=== PATIENT | female | born 1980 | race African-American/Black ===

== ENCOUNTER 2016-08-26 11:41 | Emergency (ER) | payer OTHER ==
[~2016-08-26 11:41] MED LIST: ANTIFUNGAL15 G1 TP; BACTRIM DS TAB1 EACH PO; CLEOCIN HCL300 MG PO; FLEXERIL PO; IBUPROFEN 600600 M1 PO; KENALOG60 GM TP; NORCO 5-325 TA1 EACH PO; TORADOL 10 MG T10 MG PO; VITAMINS
[2016-08-26 11:53] VITALS: BP 143/100
== END 2016-08-26 12:47 | disposition left against medical advice (07) ==
LOC: ER 11:41
DX: Z53.21 Procedure and treatment not carried out due to patient leaving prior to being seen by health care provider (principal)

== ENCOUNTER 2018-01-19 23:02 | Emergency (ER) | payer OTHER ==
[~2018-01-19] VITALS: Ht 167.6 cm; Wt 96.6 kg
[2018-01-19] MEDS ORDERED: PRENATAL PO (23:09)
[2018-01-19] MEDS ORDERED: TYLENOL325 MG PO (23:09)
[2018-01-19] MEDS ORDERED: MONISTAT 745 GM (23:09)
[2018-01-20 02:20] VITALS: BP 114/78
== END 2018-01-20 02:15 | disposition home or self-care (01) ==
LOC: ER 23:02
DX: N76.0 Acute vaginitis (principal); I10 Essential (primary) hypertension; Z88.0 Allergy status to penicillin

== ENCOUNTER 2018-05-25 09:12 | Emergency (ER) | payer OTHER ==
[~2018-05-25] VITALS: Ht 167.6 cm; Wt 97.5 kg
[~2018-05-25 09:12] MED LIST changes: +MONISTAT 745 GM; +PRENATAL PO; +TYLENOL325 MG PO
[2018-05-25 09:56] LABS: URINE BILIRUBIN NEGATIVE (Negative); URINE BLOOD NEGATIVE (Negative); URINE CLARITY CLEAR; URINE COLOR YELLOW; URINE GLUCOSE-RANDOM* NEGATIVE (Negative); URINE KETONES NEGATIVE (Negative); URINE LEUKOCYTES-REFLEX NEGATIVE (Negative); URINE NITRITE-REFLEX NEGATIVE (Negative); URINE PROTEIN (DIPSTICK) NEGATIVE (Negative); URINE SPECIFIC GRAVITY 1.025 (1.005-1.035); URINE UROBILINOGEN 0.2 E.U./dl (0.2-1.0)
[2018-05-25 10:18] VITALS: BP 145/116
[2018-05-25] MEDS ORDERED: MOBIC7.5 MG PO (10:28)
[2018-05-25] MEDS ORDERED: NORFLEX100 MG PO (10:28)
== END 2018-05-25 10:56 | disposition home or self-care (01) ==
LOC: ER 09:12
PROVIDERS: Emergency Medicine
DX: S29.012A Strain of muscle and tendon of back wall of thorax, initial encounter (principal); I10 Essential (primary) hypertension; Z88.0 Allergy status to penicillin; X50.9XXA Other and unspecified overexertion or strenuous movements or postures, initial encounter; Y93.89 Activity, other specified; Y92.89 Other specified places as the place of occurrence of the external cause; Y99.8 Other external cause status

== ENCOUNTER 2018-10-27 14:41 | Emergency (ER) | payer OTHER ==
[~2018-10-27] VITALS: Ht 167.6 cm; Wt 103.0 kg
[~2018-10-27 14:41] MED LIST changes: +MOBIC7.5 MG PO; +NORFLEX100 MG PO
[2018-10-27 15:00] LABS: URINE BILIRUBIN NEGATIVE (Negative); URINE BLOOD 3+ (Negative); URINE CLARITY CLEAR; URINE COLOR YELLOW; URINE GLUCOSE-RANDOM* NEGATIVE (Negative); URINE KETONES NEGATIVE (Negative); URINE LEUKOCYTES TRACE (Negative); URINE NITRITE NEGATIVE (Negative); URINE PROTEIN (DIPSTICK) TRACE (Negative); URINE SPECIFIC GRAVITY 1.025 (1.005-1.035); URINE UROBILINOGEN 0.2 E.U./dl (0.2-1.0)
[2018-10-27 15:09] LABS: CASTS None Seen /LPF (None Seen); SQUAMOUS 0-3 Few /LPF (0-3)
[2018-10-27 15:10] LABS: BACTERIA None Seen /HPF (None Seen); CRYSTALS None Seen /LPF (None Seen); URINE RBC >20 Many /HPF (0-2); URINE WBC 0-5 Rare /HPF (0-5)
[2018-10-27] MEDS ORDERED: NORVASC5 MG PO (15:40)
[2018-10-27 16:35] LABS: ABSOLUTE NEUTROPHILS 4.2 thou/uL (1.4-8.2); BASOPHILS 1.3 % (0.0-2.0); EOSINOPHILS 0.9 % (0.0-3.0); HEMATOCRIT 37.8 % (37.0-47.0); HEMOGLOBIN 11.8 gm/dL (12.0-15.0); MCH 24.7 pg (26.0-34.0); MCHC 31.2 g/dL (28.0-37.0); MCV 79.1 fL (80.0-100.0); MONOCYTES 10.1 % (1.0-8.0); PLATELET COUNT 397 thou/uL (150-400); POLYS 52.7 % (36.0-66.0); RBC 4.77 mil/uL (4.20-5.00); RDW 15.1 % (10.5-14.5); WBC 7.9 thou/uL (4.0-11.0)
[2018-10-27 16:44] LABS: CALCIUM 8.9 mg/dL (8.5-10.1); CREATININE 0.7 mg/dL (0.6-1.0)
[2018-10-27 18:20] VITALS: BP 166/109
== END 2018-10-27 18:20 | disposition home or self-care (01) ==
LOC: ER 14:41
PROVIDERS: Emergency Medicine; Emergency Medicine Emergency Medical Services
DX: O20.0 Threatened abortion (principal); I10 Essential (primary) hypertension; Z3A.01 Less than 8 weeks gestation of pregnancy; Z88.0 Allergy status to penicillin

== ENCOUNTER 2018-11-02 18:55 | Emergency (ER) | payer OTHER ==
[~2018-11-02] VITALS: Ht 167.6 cm; Wt 104.3 kg
[~2018-11-02 18:55] MED LIST changes: +NORVASC5 MG PO
[2018-11-02 20:28] LABS: HEMATOCRIT 34.8 % (37.0-47.0); HEMOGLOBIN 10.8 gm/dL (12.0-15.0); MCH 24.3 pg (26.0-34.0); MCHC 30.9 g/dL (28.0-37.0); MCV 78.5 fL (80.0-100.0); RBC 4.43 mil/uL (4.20-5.00); RDW 14.9 % (10.5-14.5); WBC 8.1 thou/uL (4.0-11.0)
[2018-11-02 21:35] VITALS: BP 155/98
== END 2018-11-02 21:35 | disposition home or self-care (01) ==
LOC: ER 18:55
PROVIDERS: Emergency Medicine
DX: O03.9 Complete or unspecified spontaneous abortion without complication (principal); I10 Essential (primary) hypertension; Z88.0 Allergy status to penicillin; Z3A.01 Less than 8 weeks gestation of pregnancy

== ENCOUNTER 2019-01-11 17:15 | Emergency (ER) | payer OTHER ==
[~2019-01-11] VITALS: Ht 167.6 cm; Wt 103.0 kg
[2019-01-11 18:39] VITALS: BP 163/101
[2019-01-11] MEDS ORDERED: TRIAMCINOLONE A80 GM TOP (18:53)
[2019-01-11] MEDS ORDERED: MUPIROCIN15 GM TOP (18:53)
== END 2019-01-11 19:06 | disposition home or self-care (01) ==
LOC: ER 17:15
DX: L30.1 Dyshidrosis [pompholyx] (principal); I10 Essential (primary) hypertension; Z88.0 Allergy status to penicillin

== ENCOUNTER 2019-08-09 01:32 | Emergency (ER) | payer OTHER ==
[~2019-08-09] VITALS: Ht 167.6 cm; Wt 107.5 kg
[~2019-08-09 01:32] MED LIST changes: +MUPIROCIN15 GM TOP; +TRIAMCINOLONE A80 GM TOP
[2019-08-09 01:40] VITALS: BP 153/108
[2019-08-09] MEDS ORDERED: TRIAMCINOLONE A80 GM TOP (02:15)
== END 2019-08-09 02:34 | disposition home or self-care (01) ==
LOC: ER 01:32
DX: L25.9 Unspecified contact dermatitis, unspecified cause (principal); I10 Essential (primary) hypertension; Z79.899 Other long term (current) drug therapy; Z88.0 Allergy status to penicillin

== ENCOUNTER 2019-12-30 03:53 | Emergency (ER) | payer OTHER ==
[~2019-12-30] VITALS: Ht 167.6 cm; Wt 104.3 kg
--- NOTE | ~2019-12-30 | EMS ---
[place] [address] EMS Patient Care Report Name: AMBROSIO HECTOR Room #: REG Ngoc#: [id number] Admission: 12/30/19 Attend Phys: Discharge: Date of : 84 Report #: [id number] THIS REPORT FOR: //name// Report Transmitted: 12/30/2019 05:18 EMS Care Summary [place], [place]/[facility] Incident [id number] @ 12/30/2019 03:20 Incident Location [id number] [place] [address] Patient AMBROSIO HECTOR Female, 39 Years 1980 Patient Address [id number] [place] [address] Patient History Hypertension (HTN),Anxiety, Patient Allergies Penicillin allergy, Patient Medications Amlodipine, Hydroxyzine, Chief Complaint DIZZY WITH HEADACHE Disposition Transported No Lights/[place] Dispatch Reason Sick Person Transported To [facility] Narrative UPON ARRIVAL PT R LATERAL ON BATHROOM FLOOR. PT STATES SHE WOKE UP WITH A HEADACHE AND NAUSEA AND CAME TO THE BATHROOM TO THROW UP WHICH SHE DID NOT. SHE THEN BECAME DIZZY ALSO AND LAYED ON THE FLOOR. PT ASSISTED TO STAIRCHAIR AND TAKEN OUT TO COT. PT TRANSPORTED TO [facility] [place] [address] EMS Patient Care Report Name: AMBROSIO HECTOR Room #: REG ER Ngoc#: [id number] Admission: 12/30/19 Attend Phys: Discharge: Date of : 84 Report #: [id number] Initial Vitals @03:46P: 61,CO: 8,SpO2: 100, @03:35P: 65,R: 16,BP: 149/89,Pain: 10/10,GCS: 14,Glucose: 129,SpO2: 99,Revised Trauma: 12, @03:46P: 55,R: 16,BP: 136/79,GCS: 14,SpO2: 99,Revised Trauma: 12, Assessments @03:27MENTAL:Person Oriented,Time Oriented,Event Oriented,Place Oriented,SKIN:HEENT:Head/Face: No Abnormalities,LUNG SOUNDS:General: Nausea,ABDOMEN:General: Nausea,PELVIS//GI:EXTREMITIES:Left Arm: No Abnormalities,Right Arm: No Abnormalities,Left Leg: No Abnormalities,Right Leg: No Abnormalities,PULSE:Radial: 2+ Normal,NEURO:No Abnormalities, Impression Dizziness Procedures @03:27ALS AssessmentResponse: UnchangedSucceeded@03:383-Lead ECGResponse: UnchangedSucceeded Timeline 03:18,Call Received 03:18,Dispatch Notified 03:20,Dispatched 03:22,En Route 03:25,On Scene 03:26,At Patient 03:27,ALS Assessment,Response: UnchangedSucceeded, 03:35,BP: 149/89 M,PULSE: 65,RR: 16 R,SPO2: 99 Ox,ETCO2: ,B,PAIN: 10,GCS: 14, 03:38,3-Lead ECG,Response: UnchangedSucceeded, 03:39,Depart Scene 03:46,BP: / M,PULSE: 61,RR: R,SPO2: 100 Ox,ETCO2: ,BG: ,PAIN: ,GCS: , 03:46,BP: 136/79 M,PULSE: 55,RR: 16 R,SPO2: 99 Ox,ETCO2: ,BG: ,PAIN: ,GCS: 14, 03:49,At Destination 04:00,Call Closed Disclaimer v1.1 Copyright 2020 [employer] This EMS Care Summary contains data elements from the applicable legal record (which may be displayed differently). It is designed to provide pertinent information for the following purposes: continuity of care, clinical quality, and state data reporting. The complete legal record is available to ED staff and administrators of the receiving hospital in ES's Patient Tracker. All data is provided "as is."
--- NOTE | ~2019-12-30 | EMS ---
[address] [address] EMS Patient Care Report Name: AMBROSIO HECTOR Room #: DEP Ngoc#: [id number] Admission: 12/30/19 Attend Phys: Discharge: 12/30/19 Date of : 84 Report #: [id number] THIS REPORT FOR: //name// Report Transmitted: 12/30/2019 06:18 EMS Care Summary [place], [place]/[facility] Incident [id number] @ 12/30/2019 03:20 Incident Location [id number] [place] [address] Patient AMBROSIO HECTOR Female, 39 Years 1980 Patient Address [address] [place] [address] Patient History Hypertension (HTN),Anxiety, Patient Allergies Penicillin allergy, Patient Medications Amlodipine, Hydroxyzine, Chief Complaint DIZZY WITH HEADACHE Disposition Transported No Lights/[place] Dispatch Reason Sick Person Transported To [facility] Narrative UPON ARRIVAL PT R LATERAL ON BATHROOM FLOOR. PT STATES SHE WOKE UP WITH A HEADACHE AND NAUSEA AND CAME TO THE BATHROOM TO THROW UP WHICH SHE DID NOT. SHE THEN BECAME DIZZY ALSO AND LAYED ON THE FLOOR. PT ASSISTED TO STAIRCHAIR AND TAKEN OUT TO COT. PT TRANSPORTED TO [facility] [place] [place] [address] EMS Patient Care Report Name: AMBROSIO HECTOR Room #: DEP ER [facility]#: [id number] Admission: 12/30/19 Attend Phys: Discharge: 12/30/19 Date of : 84 Report #: [id number] Initial Vitals @03:46P: 61,CO: 8,SpO2: 100, @03:35P: 65,R: 16,BP: 149/89,Pain: 10/10,GCS: 14,Glucose: 129,SpO2: 99,Revised Trauma: 12, @03:46P: 55,R: 16,BP: 136/79,GCS: 14,SpO2: 99,Revised Trauma: 12, Assessments @03:27MENTAL:Person Oriented,Time Oriented,Event Oriented,Place Oriented,SKIN:HEENT:Head/Face: No Abnormalities,LUNG SOUNDS:General: Nausea,ABDOMEN:General: Nausea,PELVIS//GI:EXTREMITIES:Left Arm: No Abnormalities,Right Arm: No Abnormalities,Left Leg: No Abnormalities,Right Leg: No Abnormalities,PULSE:Radial: 2+ Normal,NEURO:No Abnormalities, Impression Dizziness Procedures @03:27ALS AssessmentResponse: UnchangedSucceeded@03:383-Lead ECGResponse: UnchangedSucceeded Timeline 03:18,Call Received 03:18,Dispatch Notified 03:20,Dispatched 03:22,En Route 03:25,On Scene 03:26,At Patient 03:27,ALS Assessment,Response: UnchangedSucceeded, 03:35,BP: 149/89 M,PULSE: 65,RR: 16 R,SPO2: 99 Ox,ETCO2: ,B,PAIN: 10,GCS: 14, 03:38,3-Lead ECG,Response: UnchangedSucceeded, 03:39,Depart Scene 03:46,BP: / M,PULSE: 61,RR: R,SPO2: 100 Ox,ETCO2: ,BG: ,PAIN: ,GCS: , 03:46,BP: 136/79 M,PULSE: 55,RR: 16 R,SPO2: 99 Ox,ETCO2: ,BG: ,PAIN: ,GCS: 14, 03:49,At Destination 04:00,Call Closed Disclaimer v1.1 Copyright 2020 [employer] This EMS Care Summary contains data elements from the applicable legal record (which may be displayed differently). It is designed to provide pertinent information for the following purposes: continuity of care, clinical quality, and state data reporting. The complete legal record is available to ED staff and administrators of the receiving hospital in ES's Patient Tracker. All data is provided "as is."
[2019-12-30] MEDS ORDERED: CELEXA10 MG PO (04:04)
[2019-12-30] MEDS ORDERED: hydroxyzine PO (05:01)
[2019-12-30 05:08] LABS: ABSOLUTE NEUTROPHILS 5.4 thou/uL (1.4-8.2); BASOPHILS 1.2 % (0.0-2.0); EOSINOPHILS 0.8 % (0.0-3.0); HEMATOCRIT 31.7 % (37.0-47.0); LYMPHOCYTES 27.8 % (24.0-44.0); MCH 22.7 pg (26.0-34.0); MCHC 31.4 g/dL (28.0-37.0); MCV 72.1 fL (80.0-100.0); MONOCYTES 10.2 % (1.0-8.0); PLATELET COUNT 434 thou/uL (150-400); RBC 4.39 mil/uL (4.20-5.00); RDW 15.9 % (10.5-14.5); WBC 9.1 thou/uL (4.0-11.0)
[2019-12-30 05:11] LABS: ANION GAP 11 mmol/L (7-16); BUN 16 mg/dL (7-18); CALCIUM 9.3 mg/dL (8.5-10.1); CHLORIDE 102 mmol/L (98-107); CO2 25 mmol/L (21-32); GLUCOSE 94 mg/dL (74-106); POTASSIUM 3.9 mmol/L (3.5-5.1); SODIUM 138 mmol/L (136-145)
[2019-12-30 05:25] LABS: ALBUMIN 3.3 g/dL (3.4-5.0); DIRECT BILIRUBIN < 0.1 mg/dL (<0.1-0.2); SGOT 16 U/L (15-37); SGPT 12 U/L (30-65); TOTAL BILIRUBIN 0.3 mg/dL (0.2-1.0)
[2019-12-30 05:44] LABS: APTT 24.6 Seconds (24.5-32.8); PROTIME 10.4 Seconds (9.3-11.4)
[2019-12-30 06:27] VITALS: BP 111/70
== END 2019-12-30 06:51 | disposition home or self-care (01) ==
LOC: ER 03:53
PROVIDERS: Emergency Medicine
DX: R51.9 Headache, unspecified (principal); R42 Dizziness and giddiness; I10 Essential (primary) hypertension; Z79.899 Other long term (current) drug therapy; Z88.0 Allergy status to penicillin

== ENCOUNTER 2020-02-18 20:54 | Emergency (ER) | payer OTHER ==
[~2020-02-18] VITALS: Ht 167.6 cm; Wt 99.8 kg
[~2020-02-18 20:54] MED LIST changes: +CELEXA10 MG PO; +hydroxyzine PO
[2020-02-18 21:09] LABS: URINE BILIRUBIN NEGATIVE (Negative); URINE BLOOD 3+ (Negative); URINE CLARITY CLEAR; URINE COLOR YELLOW; URINE GLUCOSE-RANDOM* NEGATIVE (Negative); URINE KETONES NEGATIVE (Negative); URINE LEUKOCYTES-REFLEX TRACE (Negative); URINE NITRITE-REFLEX NEGATIVE (Negative); URINE PROTEIN (DIPSTICK) NEGATIVE (Negative); URINE SPECIFIC GRAVITY >= 1.030 (1.005-1.035); URINE UROBILINOGEN 0.2 E.U./dl (0.2-1.0)
[2020-02-18 21:29] LABS: CASTS None Seen /LPF (None Seen); MUCUS 4-6 Moderate strn/LPF (None Seen); SQUAMOUS 4-10 Moderate /LPF (0-3)
[2020-02-18 21:30] LABS: BACTERIA-REFLEX 1-9 Few /HPF (None Seen); CRYSTALS None Seen /LPF (None Seen); URINE RBC 3-10 Few /HPF (0-2); URINE WBC-REFLEX 0-5 Rare /HPF (0-5); YEAST-REFLEX Present (None Seen)
[2020-02-18] MEDS ORDERED: HYDROXYZINE HCL25 M2 PO (23:20)
[2020-02-18] MEDS ORDERED: ONDANSETRON HCL4 M3 PO (23:21)
[2020-02-18] MEDS ORDERED: SERTRALINE HCL50 MG PO (23:21)
[2020-02-18] MEDS ORDERED: FAMOTIDINE 20 M20 MG PO (23:22)
[2020-02-18] MEDS ORDERED: IRON325 PO (23:22)
[2020-02-18] MEDS ORDERED: LOPRESSOR50 PO (23:23)
[2020-02-18 23:24] LABS: ABSOLUTE NEUTROPHILS 3.9 thou/uL (1.4-8.2); EOSINOPHILS 1.7 % (0.0-3.0); HEMATOCRIT 29.5 % (37.0-47.0); HEMOGLOBIN 9.4 gm/dL (12.0-15.0); LYMPHOCYTES 30.6 % (24.0-44.0); MCHC 31.8 g/dL (28.0-37.0); MCV 72.2 fL (80.0-100.0); MONOCYTES 7.4 % (1.0-8.0); PLATELET COUNT 371 thou/uL (150-400); POLYS 59.3 % (36.0-66.0); RBC 4.09 mil/uL (4.20-5.00); RDW 16.1 % (10.5-14.5); WBC 6.6 thou/uL (4.0-11.0)
[2020-02-18] MEDS ORDERED: TRAZODONE HCL50 MG PO (23:24)
[2020-02-18 23:35] LABS: CALCIUM 9.1 mg/dL (8.5-10.1); CREATININE 0.8 mg/dL (0.6-1.0); POTASSIUM 3.6 mmol/L (3.5-5.1)
[2020-02-18 23:41] LABS: ALBUMIN 3.1 g/dL (3.4-5.0); TOTAL BILIRUBIN 0.1 mg/dL (0.2-1.0)
[2020-02-19 00:20] LABS: ANISOCYTOSIS 1+; HYPOCHROMASIA 1+; MICROCYTES 1+; POLYCHROMASIA OCCASIONAL
[2020-02-19] MEDS ORDERED: BACTRIM DS TAB1 EACH PO (00:24)
[2020-02-19] MEDS ORDERED: DIFLUCAN150 MG PO (00:24)
[2020-02-19 00:28] VITALS: BP 154/87
== END 2020-02-19 00:47 | disposition home or self-care (01) ==
LOC: ER 20:54
PROVIDERS: Emergency Medicine; Physician Assistant
DX: N39.0 Urinary tract infection, site not specified (principal); R31.9 Hematuria, unspecified; B37.9 Candidiasis, unspecified; I10 Essential (primary) hypertension; Z79.899 Other long term (current) drug therapy; Z88.0 Allergy status to penicillin